=== PATIENT | female | born 1995 | race African-American/Black ===

== ENCOUNTER 2018-02-22 20:04 | Emergency (ER) | payer MEDICAID ==
[~2018-02-22] VITALS: Ht 170.2 cm; Wt 57.0 kg
[2018-02-22 22:35] LABS: CLARITY URINE CLEAR (CLEAR); COLOR URINE YELLOW (YELLOW); KETONES URINE TRACE (NEGATIVE); LEUKOCYTE ESTERASE URINE NEGATIVE (NEGATIVE); NITRITE URINE NEGATIVE (NEGATIVE); OCCULT BLOOD URINE TRACE (NEGATIVE); PH URINE 6.5 (4.5-8.0); PROTEIN URINE 2+ (NEGATIVE); SPECIFIC GRAVITY URINE 1.029 (1.005-1.030)
[2018-02-22 23:43] VITALS: BP 133/76
== END 2018-02-23 00:33 | disposition left against medical advice (07) ==
LOC: ER 21:34
DX: R07.89 Other chest pain (principal); R10.30 Lower abdominal pain, unspecified; J45.909 Unspecified asthma, uncomplicated; F17.200 Nicotine dependence, unspecified, uncomplicated; R05 Cough
CPT/HCPCS: 81003; 81025; 93005; 99285

== ENCOUNTER 2018-06-03 11:50 | Emergency (ER) | payer MEDICAID ==
[~2018-06-03] VITALS: Ht 170.2 cm; Wt 54.0 kg
[2018-06-03 16:17] VITALS: BP 124/80
== END 2018-06-03 16:56 | disposition left against medical advice (07) ==
LOC: ER 13:29
DX: O26.891 Other specified pregnancy related conditions, first trimester (principal); O21.8 Other vomiting complicating pregnancy; Z3A.01 Less than 8 weeks gestation of pregnancy; Z53.21 Procedure and treatment not carried out due to patient leaving prior to being seen by health care provider
CPT/HCPCS: 81025; 99283

== ENCOUNTER 2018-06-24 10:48 | Emergency (ER) | payer MEDICAID ==
[~2018-06-24] VITALS: Ht 170.2 cm; Wt 57.0 kg
[2018-06-24] MEDS ORDERED: ACETAMINOPHEN 325MG TABLET PO ONE (11:45)
[2018-06-24 12:37] LABS: CLARITY URINE CLEAR (CLEAR); COLOR URINE YELLOW (YELLOW); KETONES URINE NEGATIVE (NEGATIVE); LEUKOCYTE ESTERASE URINE 1+ (NEGATIVE); NITRITE URINE NEGATIVE (NEGATIVE); OCCULT BLOOD URINE TRACE (NEGATIVE); PROTEIN URINE 1+ (NEGATIVE); SPECIFIC GRAVITY URINE 1.016 (1.005-1.030); UROBILINOGEN URINE 0.2 E.U./dL (0.2-1.0)
[2018-06-24 13:32] LABS: BASOPHILS % 0.2 % (0.0-2.0); EOSINOPHILS % 4.4 % (0.0-5.0); HEMATOCRIT. 36.1 % (36.0-48.0); HEMOGLOBIN. 12.3 g/dL (12.0-16.0); LYMPHOCYTES % 24.7 % (20.0-50.0); MEAN CORPUSCULAR HEMOGLOBIN 31.7 pg (28.0-32.0); MEAN PLATELET VOLUME 8.2 fl (7.4-10.4); MONOCYTES % 6.5 % (2.0-8.0); NEUTROPHILS % 64.2 % (40.0-76.0); PLATELET 215 x1000/uL (130-400); RED BLOOD CELL COUNT 3.88 mill/uL (4.2-5.4); RED CELL DISTRIBUTION WIDTH 13.5 % (11.6-14.6)
[2018-06-24 13:51] LABS: CHLORIDE 105 mEq/L (98-107)
[2018-06-24 14:15] LABS: B-HCG QUANTITATIVE 195670 mIU/mL (<3)
[2018-06-24 14:17] VITALS: BP 124/64
== END 2018-06-24 14:18 | disposition home or self-care (01) ==
LOC: ER 10:58
DX: O23.31 Infections of other parts of urinary tract in pregnancy, first trimester (principal); O99.511 Diseases of the respiratory system complicating pregnancy, first trimester; J45.909 Unspecified asthma, uncomplicated; Z98.890 Other specified postprocedural states; Z3A.10 10 weeks gestation of pregnancy
CPT/HCPCS: 36415; 76805; 76810; 80053; 81003; 81025; 84702; 85025; 86850; 86900; 99285

== ENCOUNTER 2018-11-12 11:17 | Observation (INO) | payer MEDICAID ==
[~2018-11-12] VITALS: Ht 170.2 cm; Wt 63.5 kg
[2018-11-12] MEDS ORDERED: PNV1TABL76 PO (11:41)
[2018-11-12] MEDS ORDERED: LACTATED RINGERS 1,000 ML IV SCH (12:15)
[2018-11-12] MEDS ORDERED: CEFAZOLIN 2,000 MG in DEXT 5% WATER 100 ML IV NR (12:15)
[2018-12-12] MEDS ORDERED: ALBU6.7H9 INH (13:35)
== END 2018-11-12 15:40 | disposition home or self-care (01) ==
LOC: L&D 11:17
PROVIDERS: ADMIT Obstetrics & Gynecology; ATTEND Obstetrics & Gynecology
DX: R10.30 Lower abdominal pain, unspecified (principal); N89.8 Other specified noninflammatory disorders of vagina; Z3A.31 31 weeks gestation of pregnancy
CPT/HCPCS: 82731; 96365; 99281; G0378; J0690; 96360; 96361; J7060

== ENCOUNTER 2018-12-13 21:03 | Observation (INO) | payer MEDICAID ==
[~2018-12-13] VITALS: Ht 170.2 cm; Wt 68.0 kg
[~2018-12-13 21:03] MED LIST: ALBU6.7H9 INH; PNV1TABL76 PO
[2018-12-13] MEDS ORDERED: BETAMETHASONE ACET/BETAMET 30 MG/5 ML VIAL IM ONE (21:45)
== END 2018-12-13 22:05 | disposition home or self-care (01) ==
LOC: 8 EST LDRP 21:03
PROVIDERS: ADMIT Obstetrics & Gynecology; ATTEND Obstetrics & Gynecology
DX: O26.893 Other specified pregnancy related conditions, third trimester (principal); N89.8 Other specified noninflammatory disorders of vagina; Z3A.35 35 weeks gestation of pregnancy
CPT/HCPCS: 96372; G0378; 99281